=== PATIENT | male | born 1980 | race Caucasian/White ===

== ENCOUNTER → 2018-02-15 15:26 | Outpatient (CLI) | payer OTHER, SELFPAY | PROVIDERS: Visit Provider Otolaryngology Otolaryngology/Facial Plastic Surgery | DX: J03.90 Acute tonsillitis, unspecified (principal) | CPT/HCPCS: 87070; 87077; 87186 ==

== ENCOUNTER → 2018-03-08 14:02 | Outpatient (CLI) | payer OTHER, SELFPAY ==
[2018-03-09 14:02] LABS: ASO Titer 225.2 IU/mL (0.0-200.0)
== END ==
PROVIDERS: Family Provider Family Medicine; PCP Family Medicine; Referring Provider Otolaryngology Otolaryngology/Facial Plastic Surgery; Visit Provider Otolaryngology Otolaryngology/Facial Plastic Surgery
DX: J03.00 Acute streptococcal tonsillitis, unspecified (principal)
CPT/HCPCS: 36415; 86060

== ENCOUNTER → 2018-03-18 15:46 | Outpatient (CLI) | payer OTHER, SELFPAY ==
--- NOTE | 2018-03-18 15:49 | CT_ITS ---
STUDY: CT MAXILLOFACIAL SINUSES REASON FOR EXAM: Male, 37 years old. Chronic sinusitis RADIATION DOSAGE (If Supplied By Facility): CTDIvol = ( 29.38 ) mGy, DLP = ( 415.23 ) mGycm TECHNIQUE: The patient was scanned in a multi detector CT scanner. High resolution axial imaging was performed without the administration of intravenous contrast material. Sagittal and coronal images were reconstructed. Individualized dose optimization techniques were used for this CT. COMPARISON: None. FINDINGS: FRONTAL SINUSES: Normal aeration, without mucosal inflammatory disease. ETHMOIDAL SINUSES: Normal aeration, without mucosal inflammatory disease. MAXILLARY SINUSES: Normal aeration, without mucosal inflammatory disease. SPHENOIDAL SINUSES: Normal aeration, without mucosal inflammatory disease. There is patency of the bilateral maxillary infundibuli with normal uncinate processes, ethmoid bullae, and hiatus semilunaris. Normal bilateral middle turbinates. Normal bilateral inferior turbinates. Normal midline nasal septum. There is patency of the bilateral nasal airways. The visualized osseous structures are normal. The visualized bilateral orbital contents are normal. CT/Sinus/Facial Bone IMPRESSION: Normal CT examination of the maxillofacial sinuses. Electronically Signed: Fox Knight, at 19:46 EDT Tel , Service support ,
== END ==
PROVIDERS: Family Provider Family Medicine; PCP Family Medicine; Referring Provider Otolaryngology Otolaryngology/Facial Plastic Surgery; Visit Provider Otolaryngology Otolaryngology/Facial Plastic Surgery
DX: J32.9 Chronic sinusitis, unspecified (principal); J02.9 Acute pharyngitis, unspecified
CPT/HCPCS: 70486

== ENCOUNTER 2018-04-11 07:26 | Day surgery (SDC) | payer OTHER, SELFPAY ==
--- NOTE | 2018-04-11 | TONS_PTH ---
PATIENT: CLARK DANIELS LOC: [facility] [place] U#:[id number] AGE/SX: 37/M ROOM: RE04/11/[address]: Dago Ramírez MD : 1980 BED: DIS: 04/11/2018 SPEC #: [id number] RECD: 04/11/18 11:51 STATUS: WALDO GARCIAS #: [id number] GRAHAM: 04/11/18 00:[address]: Dago Ramírez DEPT: SURGICAL PATHOLOGY RECD BY: Bashir Craig ENTERED: 04/11/18 11:52 SP TYPE: TONSILS OTHR DR: Dr. Jimbo Bowman MD Tissues: Tonsil, NOS Procedures: Surgery Specimen Level III HEADER OPERATION: Tonsillectomy PRE-OP DIAGNOSIS: Chronic tonsillitis TISSUE SUBMITTED: Tonsils, tie on right MICROSCOPIC DIAGNOSIS Bilateral tonsils: Reactive lymphoid hyperplasia, consistent with chronic tonsillitis. Focal actinomyces colonization. SJ:rosio 04/12/18 MICROSCOPIC DESCRIPTION Slides are reviewed. GROSS DESCRIPTION Received is one container labeled with the patient's name and designated tonsils - pin/tie on right are two tonsils that in aggregate weigh 6.2 gm. The right tonsil has a pin-tie on it and measures 3 x 1.5 x 1.5 cm. The left tonsil measures 3 x 2 x 1.5 cm. Both tonsils are similar in appearance. The external surfaces are pink-street, smooth, glistening and somewhat lobulated. Focally they are hemorrhagic, granular and bear cautery artifact. Serial cross sections through the tonsils reveal normal tonsillar architecture. Sections are submitted in two cassettes as follows: 1 - right tonsil, 2 - left tonsil. / LUTHER:rosio 04/11/18 TC:3 [facility]: [id number] x2
[2018-04-11 07:51] VITALS: BP 106/67; PULSE 67; RESP 16; TEMP 36.6; O2SAT 96; BMI 25.9
[2018-04-11] MEDS: Oxymetazoline 0.05% 1 SPRAY SPRAY.BTL 15 SPRAY (09:30)
--- NOTE | 2018-04-11 09:53 | DCINST_ITS ---
Discharge Diet: Soft diet - for 2 weeks, be sure to drink extra liquids. Discharge Activity: Return to Normal Activity - Rest for 10 days Additional Activity Instructions:: Use tylenol (with or without the hydrocodone as prescribed) every 4 hours for the first 7-10 days then as needed. Allergies/Adverse Reactions: Allergies Penicillins Allergy (Verified 04/11/18 07:51) Rash Medications to take at Discharge NK 04/02/18 Primary Care Physician: Jimbo Bowman MD [Primary Care Provider] - Test Results: Test results from this visit will be discussed in further detail at your follow- up appointment, if applicable. Please Follow Up With: Dago Ramírez MD - [phone] When: in 1-2 weeks.
[2018-04-11 10:00] VITALS: BP 106/67; BP 153/96; PULSE 97; RESP 16; TEMP 36.2; O2SAT 97
[2018-04-11 10:15] VITALS: BP 106/67; BP 115/86; PULSE 82; RESP 16; O2SAT 98
[2018-04-11 10:20] VITALS: BP 106/67; BP 126/82; PULSE 85; RESP 16; TEMP 36.9; O2SAT 97
--- NOTE | 2018-04-11 10:44 | PCM.OP.BLANK ---
Operative Report Date of Procedure: 04/11/18 Preoperative diagnosis: chronic tonsillitis Postoperative diagnosis: Same Procedure: Tonsillectomy Anesthesia: General endotracheal per Mago Michael CRNA Details of procedure: The patient was transported to the operating room and placed on the OR table in the supine position. After the administration of adequate general endotracheal anesthesia the patient was appropriately positioned, eyes were treated and taped closed. A head drape was applied. The Bob-Esthela mouthgag was introduced into the oral cavity, extended and suspended from a Senior stand. Inspection and palpation were negative for any signs of submucosal clefting of the palate. Adenoidal tissue was absent. Tonsils were only mildly hyperplastic but were notable for mucous retention cysts and debris within the crevices consistent with tonsilloliths. The lymphoid tissues were not acutely inflamed at this time. The right tonsil was grasped with a tenaculum. With #12 sickle blade a mucosal incision was created along the right anterior tonsillar pillar. With Patti dissector, curved Metzenbaum scissors, in both blunt and sharp fashion the tonsil was excised. The bayonet Bovie was utilized for hemostasis throughout the dissection as well as for electrodissection. The left tonsil was then removed in similar fashion. The oral cavity was irrigated with saline suctioned dry and hemostasis was obtained with electrocautery. When it was evident that no further bleeding was present the Bob-Esthela mouthgag was relaxed, withdrawn, and the procedure terminated. The patient tolerated the procedure well, did not sustain any intra-operative anesthetic or surgical complication, was extubated in the operating room and taken to the PACU where he was noted to be in satisfactory condition. Dago Ramírez MD
[2018-04-11] MEDS: HYDROCODONE/APAP 7.5-325/15ML 15 ML UDC PO (11:05)
[2018-04-11 12:16] VITALS: BP 106/67; BP 126/80; PULSE 93; RESP 16; TEMP 36.6; O2SAT 96
== END 2018-04-11 12:22 | disposition home or self-care (01) ==
LOC: SDC 07:27 → AC 07:27
PROVIDERS: Family Provider Family Medicine; PCP Family Medicine; Referring Provider Otolaryngology Otolaryngology/Facial Plastic Surgery; Visit Provider Otolaryngology Otolaryngology/Facial Plastic Surgery
PROC: (CPT 42826; principal; 2018-04-11 08:55)
DX: J35.01 Chronic tonsillitis (principal); J35.8 Other chronic diseases of tonsils and adenoids; H93.13 Tinnitus, bilateral
CPT/HCPCS: 42826; 88304; J7120; J2405

== ENCOUNTER → 2018-10-23 08:09 | Outpatient (CLI) | payer OTHER, SELFPAY ==
--- NOTE | 2018-10-23 13:40 | NEURO ---
NCS and/or EMG Patient Report Ordering Doctor: Jimbo Bowman DATE OF SERVICE: 10/23/18 Parviz Buchanan is a 38-year-old male presents for electrodiagnostic testing in the upper limbs. He reports numbness and pain in both thumbs, progressively worsening over the past year. Electrodiagnostic findings: Median motor nerve demonstrates normal distal latency, amplitude and conduction velocity bilaterally. Normal ulnar motor response bilaterally. Normal median ulnar F waves. Sensory responses are within normal limits. On needle EMG, all muscles tested in the upper limbs showed no evidence of denervation with normal motor unit action potentials. Electrodiagnostic impression: This is a normal electrodiagnostic study in the upper limbs. There is no electrodiagnostic evidence for peripheral neuropathy, including carpal tunnel syndrome. There is no electrodiagnostic evidence for cervical radiculopathy.
== END ==
PROVIDERS: Family Provider Family Medicine; PCP Family Medicine; Referring Provider Family Medicine; Visit Provider Family Medicine
DX: G56.03 Carpal tunnel syndrome, bilateral upper limbs (principal); M25.532 Pain in left wrist; M25.531 Pain in right wrist
CPT/HCPCS: 95886; 95913